=== PATIENT | male | born 1995 | race Caucasian/White ===

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

== ENCOUNTER 2017-11-13 16:31 | Emergency (ER) | payer BC ==
[2017-11-13 16:54] VITALS: BP 117/80
--- NOTE | 2017-11-13 16:57 | UC ---
Respiratory Complaint HPI - HPI Summary HPI Summary: 22 yo male presents with productive cough for the last 4 days. Sputum has been yellow/green in color and bad tasting. He had a fever 2 days ago of 101F and took ibuprofen with good relief. He has not had a fever since, but feels hot/ cold at times. He notices that he has increased coughing and mild SOB with activity. Denies sinus symptoms, sore throat, chest pain, palpitations, abdominal pain, n/v/d. - History of Current Complaint Chief Complaint: UCRespiratory Stated Complaint: COUGH,CONGESTION Time Seen by Provider: 11/13/17 16:57 Hx Obtained From: Patient Severity Currently: None Pain Intensity: 0 Character: Cough: Productive - Allergies/Home Medications Allergies/Adverse Reactions: Allergies Allergy/AdvReac Type Severity Reaction Status Date / Time No Known Allergies Allergy Verified 11/13/17 16:48 Home Medications: Home Medications Lisdexamfetamine Dimesylate [Vyvanse] 1 cap DAILY 11/13/17 [History Confirmed ] Venlafaxine EXT RELEASE CAP* [Effexor Xr CAP*] 1 cap DAILY 11/13/17 [History Confirmed 11/13/17] PMH/Surg Hx/FS Hx/Imm Hx - Additional Past Medical History Additional PMH: ADHD Anxiety GERD - Surgical History Surgical History: Yes Surgery Procedure, Year, and Place: wisdom teeth - Family History Known Family History: Positive: Cardiac Disease - Social History Occupation: Student Lives: Dormitory/Roommates Alcohol Use: None Substance Use Type: Marijuana Substance Use Comment - Amount & Last Used: YESTERDAY Smoking Status (MU): Never Smoked Tobacco Have You Smoked in the Last Year: No - Immunization History Most Recent Tetanus Shot: UTD Review of Systems Constitutional: Fever Skin: Negative Eyes: Negative ENT: Negative Respiratory: Shortness Of Breath, Cough Cardiovascular: Negative Gastrointestinal: Negative Neurovascular: Negative Neurological: Negative Psychological: Negative All Other Systems Reviewed And Are Negative: Yes Physical Exam - Summary Physical Exam Summary: GENERAL: NAD. WDWN. Mild pain distress. SKIN: No rashes, sores, lesions, or open wounds. HEENT: Head: AT/NC Eyes: Conjunctiva clear without inflammation or discharge. Ears: Hearing grossly normal. TMs intact, no bulging, erythema, or edema. Nose: Nasal mucosa pink and moist. NTTP maxillary and frontal sinus. Throat: Posterior oropharynx without exudates, erythema, or tonsillar enlargement. Uvula midline. NECK: Supple. Nontender. No lymphadenopathy. CHEST: Mild rales LLL with mild wheezing throughout. No accessory muscle use. Breathing comfortably and in no distress. CV: RRR. Without m/r/g. Pulses intact. Cap refill <2seconds NEURO: Alert. PSYCH: Age appropriate behavior. Triage Information Reviewed: Yes Vital Signs: Initial Vital Signs Temp 97.1 F 11/13/17 16:49 Pulse 88 11/13/17 16:49 Resp 16 11/13/17 16:49 BP 117/80 11/13/17 16:49 Pulse Ox 100 11/13/17 16:49 Vital Signs Reviewed: Yes UC Diagnostic Evaluation - Laboratory O2 Sat by Pulse Oximetry: 100 Respiratory Course/Dx - Course Course Of Treatment: Pt declined CXR today. He says that he has taken amoxicillin in the past, but has not tolerated it very well - therefore will rx azithromycin and have him f/u if his symptoms persist, at which point a CXR would likely be beneficial. - Differential Dx/Diagnosis Provider Diagnoses: Cough Discharge - Sign-Out/Discharge Documenting (check all that apply): Patient Departure All imaging exams completed and their final reports reviewed: No Studies - Discharge Plan Condition: Stable Disposition: HOME Prescriptions: Azithromycin TAB* [Zithromax TAB (Z-FAHAD) 250 mg #6 tabs] 2 tab PO .TODAY, THEN 1 DAILY #1 fahad Patient Education Materials: Acute Bronchitis (ED) Referrals: No Primary Care Phys,NOPCP [Primary Care Provider] - Additional Instructions: If you develop a fever, shortness of breath, chest pain, new or worsening symptoms - please call your PCP or go to the ED. - Billing Disposition and Condition Condition: STABLE Disposition: Home
== END 2017-11-13 17:07 | disposition home or self-care (01) ==
LOC: UCCORT 16:31
DX: R05 Cough (principal); R06.02 Shortness of breath; R09.81 Nasal congestion; F90.9 Attention-deficit hyperactivity disorder, unspecified type
CPT/HCPCS: 99212; G0463

== ENCOUNTER 2018-01-01 09:57 | Emergency (ER) | payer BC ==
[2018-01-01 10:22] VITALS: BP 120/83
--- NOTE | 2018-01-01 10:50 | UC ---
Respiratory Complaint HPI - HPI Summary HPI Summary: cough x 1 days cough is dry , no sputum, no wheezing , no sob + nasal congestion , sore throat x 1 wee no fever, no chills - History of Current Complaint Chief Complaint: UCRespiratory Stated Complaint: ST,COUGH,CONGESTION Time Seen by Provider: 01/01/18 10:27 Hx Obtained From: Patient Onset/Duration: Gradual Onset, Lasting Days - 1, Still Present Severity Initially: Moderate Severity Currently: Moderate Pain Intensity: 0 Character: Cough: Nonproductive Aggravating Factors: Exertion, Deep Breaths Alleviating Factors: Nothing Associated Signs And Symptoms: Positive: URI, Nasal Congestion. Negative: Dyspnea, Fever, Chills, Pleuritic Chest Pain, Wheezing, Hemoptysis, Dizziness, Calf Pain, Calf Swelling, Edema - Allergies/Home Medications Allergies/Adverse Reactions: Allergies Allergy/AdvReac Type Severity Reaction Status Date / Time No Known Allergies Allergy Verified 01/01/18 10:19 Home Medications: Home Medications guanFACINE TAB* [Tenex TAB*] 1 mg PO BEDTIME 01/01/18 [History Confirmed ] PMH/Surg Hx/FS Hx/Imm Hx Previously Healthy: Yes - Surgical History Surgical History: Yes Surgery Procedure, Year, and Place: wisdom teeth - Family History Known Family History: Positive: Cardiac Disease - Social History Alcohol Use: None Substance Use Type: Marijuana Substance Use Comment - Amount & Last Used: YESTERDAY Smoking Status (MU): Never Smoked Tobacco Have You Smoked in the Last Year: No - Immunization History Most Recent Tetanus Shot: UTD Review of Systems Constitutional: Negative Skin: Negative Eyes: Negative ENT: Sore Throat, Nasal Discharge Respiratory: Cough Cardiovascular: Negative Gastrointestinal: Negative Is Patient Immunocompromised?: No All Other Systems Reviewed And Are Negative: Yes Physical Exam Triage Information Reviewed: Yes Appearance: Well-Appearing, No Pain Distress, Well-Nourished Vital Signs: Initial Vital Signs Temp 98.6 F 01/01/18 10:17 Pulse 89 01/01/18 10:17 Resp 17 01/01/18 10:17 BP 120/83 01/01/18 10:17 Pulse Ox 98 01/01/18 10:17 Vital Signs Reviewed: Yes Eye Exam: Normal Eyes: Positive: Conjunctiva Clear ENT: Positive: Normal ENT inspection, Hearing grossly normal, Pharynx normal Neck: Positive: Supple, Nontender, No Lymphadenopathy Respiratory: Positive: Chest non-tender, Lungs clear, Normal breath sounds Cardiovascular: Positive: RRR, No Murmur, Pulses Normal Skin Exam: Normal UC Diagnostic Evaluation - Laboratory O2 Sat by Pulse Oximetry: 98 Respiratory Course/Dx - Differential Dx/Diagnosis Provider Diagnoses: viral bronchitis Discharge - Sign-Out/Discharge Documenting (check all that apply): Patient Departure All imaging exams completed and their final reports reviewed: No Studies - Discharge Plan Condition: Stable Disposition: HOME Patient Education Materials: Acute Bronchitis (ED) Referrals: No Primary Care Phys,NOPCP [Primary Care Provider] - If Needed Additional Instructions: viral illness no need for antibiotics follow up as needed - Billing Disposition and Condition Condition: STABLE Disposition: Home
== END 2018-01-01 10:57 | disposition home or self-care (01) ==
LOC: UCCORT 09:57
DX: J20.8 Acute bronchitis due to other specified organisms (principal); F12.90 Cannabis use, unspecified, uncomplicated
CPT/HCPCS: 99211; G0463

== ENCOUNTER 2018-03-28 07:20 | Emergency (ER) | payer BC ==
[2018-03-28 07:39] VITALS: BP 128/76
--- NOTE | 2018-03-28 08:03 | ED ---
Throat Pain/Nasal Congestion - HPI Summary HPI Summary: 22 yr old male with the complaint of runny nose, coughing, and sore throat the past week. He comes now because his glands have felt swollen to him. He mostly has a cough now. No fever. Ill exposures at college. No stridor. No drooling. No ear pain. - History of Current Complaint Chief Complaint: UCRespiratory Time Seen by Provider: 03/28/18 07:40 - Allergies/Home Medications Allergies/Adverse Reactions: Allergies Allergy/AdvReac Type Severity Reaction Status Date / Time No Known Allergies Allergy Verified 03/28/18 07:29 Home Medications: Home Medications Ibuprofen TAB* [Motrin TAB* 400 MG] 400 mg PO Q12H PRN 03/28/18 [History Confirmed 03/28/18] PMH/Surg Hx/FS Hx/Imm Hx - Surgical History Surgery Procedure, Year, and Place: wisdom teeth Infectious Disease History: No Infectious Disease History: Denies: Traveled Outside the [place] in Last 30 Days - Family History Known Family History: Positive: Cardiac Disease - Social History Alcohol Use: Occasionally Substance Use Type: Reports: Marijuana Substance Use Comment - Amount & Last Used: Quit 03/24/18 Smoking Status (MU): Current Some Day Smoker Have You Smoked in the Last Year: No Review of Systems Constitutional: Negative Positive: Sore Throat, Nasal Discharge Positive: Cough All Other Systems Reviewed And Are Negative: Yes Physical Exam Triage Information Reviewed: Yes Vital Signs On Initial Exam: Initial Vitals Temp Pulse Resp BP Pulse Ox 98.6 F 80 18 128/76 99 03/28/18 07:32 03/28/18 07:32 03/28/18 07:32 03/28/18 07:32 03/28/18 07:32 Vital Signs Reviewed: Yes Appearance: Positive: Well-Appearing, No Pain Distress Skin: Positive: Warm, Skin Color Reflects Adequate Perfusion Head/Face: Positive: Normal Head/Face Inspection Eyes: Positive: EOMI ENT: Positive: Pharyngeal erythema. Negative: Tonsillar swelling, Tonsillar exudate, Muffled voice Neck: Positive: Nontender, Enlarged Nodes @ - mild anterior superior Respiratory/Lung Sounds: Positive: Clear to Auscultation Cardiovascular: Positive: RRR. Negative: Murmur Musculoskeletal: Positive: Strength/ROM Intact Neurological: Positive: Sensory/Motor Intact, Alert, Oriented to Person Place, Time, CN Intact II-III Psychiatric: Positive: Normal Diagnostics - Vital Signs Vital Signs Temp Pulse Resp BP Pulse Ox 03/28/18 07:32 98.6 F 80 18 128/76 99 - Laboratory Lab Statement: Any lab studies that have been ordered have been reviewed, and results considered in the medical decision making process. EENT Course/Dx - Course Course Of Treatment: 22 yr old with neg rapid strep. Cannon spot sent. DC home - Diagnoses Provider Diagnoses: Upper respiratory infection Discharge - Sign-Out/Discharge Documenting (check all that apply): Patient Departure All imaging exams completed and their final reports reviewed: No Studies - Discharge Plan Condition: Good Disposition: HOME Patient Education Materials: Upper Respiratory Infection (ED) Referrals: No Primary Care Phys,NOPCP [Primary Care Provider] - [facility]] - Billing Disposition and Condition Condition: GOOD Disposition: Home
== END 2018-03-28 08:09 | disposition home or self-care (01) ==
LOC: UCCORT 07:20
DX: J06.9 Acute upper respiratory infection, unspecified (principal); F17.200 Nicotine dependence, unspecified, uncomplicated
CPT/HCPCS: 36415; 86308; 87651; 99211; G0463

== ENCOUNTER 2018-07-02 21:30 | Emergency (ER) | payer BC ==
[2018-07-02 21:45] VITALS: BP 122/76
--- NOTE | 2018-07-02 21:54 | ED ---
Throat Pain/Nasal Congestion - HPI Summary HPI Summary: 23 yr old male with the complaint of sore throat, runny nose, cough for about one week. Some fever and chills. The patient denies drooling. Symptoms are moderate. - History of Current Complaint Chief Complaint: UCRespiratory Time Seen by Provider: 07/02/18 21:44 - Allergies/Home Medications Allergies/Adverse Reactions: Allergies Allergy/AdvReac Type Severity Reaction Status Date / Time No Known Allergies Allergy Verified 07/02/18 21:41 PMH/Surg Hx/FS Hx/Imm Hx - Surgical History Surgery Procedure, Year, and Place: wisdom teeth Infectious Disease History: No Infectious Disease History: Denies: Traveled Outside the [place] in Last 30 Days - Family History Known Family History: Positive: Cardiac Disease - Social History Occupation: Student Lives: With Family Alcohol Use: Occasionally Substance Use Type: Reports: None Substance Use Comment - Amount & Last Used: Quit 03/24/18 Smoking Status (MU): Current Some Day Smoker Amount Used/How Often: "vape"- 4xweek Have You Smoked in the Last Year: No Review of Systems Positive: Fever, Chills Positive: Sore Throat, Nasal Discharge Positive: Cough All Other Systems Reviewed And Are Negative: Yes Physical Exam Triage Information Reviewed: Yes Vital Signs On Initial Exam: Initial Vitals Temp Pulse Resp BP Pulse Ox 97.9 F 81 16 122/76 98 07/02/18 21:42 07/02/18 21:42 07/02/18 21:42 07/02/18 21:42 07/02/18 21:42 Vital Signs Reviewed: Yes Appearance: Positive: Well-Appearing, No Pain Distress Skin: Positive: Warm, Skin Color Reflects Adequate Perfusion Head/Face: Positive: Normal Head/Face Inspection Eyes: Positive: EOMI ENT: Positive: Pharyngeal erythema, Nasal congestion, TMs normal Neck: Positive: Nontender Respiratory/Lung Sounds: Positive: Clear to Auscultation, Breath Sounds Present Cardiovascular: Positive: RRR. Negative: Murmur Abdomen Description: Negative: Distended Musculoskeletal: Positive: Strength/ROM Intact Neurological: Positive: Sensory/Motor Intact, Alert, Oriented to Person Place, Time, CN Intact II-III, Speech Normal Psychiatric: Positive: Normal Diagnostics - Vital Signs Vital Signs Temp Pulse Resp BP Pulse Ox 07/02/18 21:42 97.9 F 81 16 122/76 98 - Laboratory Lab Statement: Any lab studies that have been ordered have been reviewed, and results considered in the medical decision making process. EENT Course/Dx - Course Course Of Treatment: 23 yr old with URI symtpoms. DC home. - Diagnoses Provider Diagnoses: Upper respiratory infection Discharge - Sign-Out/Discharge Documenting (check all that apply): Patient Departure All imaging exams completed and their final reports reviewed: No Studies - Discharge Plan Condition: Good Disposition: HOME Patient Education Materials: Upper Respiratory Infection (ED) Referrals: No Primary Care Phys,NOPCP [Primary Care Provider] - [facility] [Outside] - Billing Disposition and Condition Condition: GOOD Disposition: Home
== END 2018-07-02 21:59 | disposition home or self-care (01) ==
LOC: UCCORT 21:30
DX: J06.9 Acute upper respiratory infection, unspecified (principal); R05 Cough; F17.210 Nicotine dependence, cigarettes, uncomplicated
CPT/HCPCS: 87651; 99211; G0463

== ENCOUNTER 2018-07-06 11:13 | Emergency (ER) | payer BC ==
[2018-07-06 12:13] VITALS: BP 125/79
--- NOTE | 2018-07-06 12:25 | UC ---
Throat Pain/Nasal Dima HPI - HPI Summary HPI Summary: 23-year-old male comes in with a chief complaint of more than 10 days of upper respiratory tract infection symptoms. Patient said rhinorrhea sinus pressure and postnasal drip cough chest congestion and green sputum. Initially had some fevers. He also had a fever last night and this morning he reports 101 this morning. [id number] medications to help some with the symptoms. - History of Current Complaint Chief Complaint: UCRespiratory Stated Complaint: COUGH,FEVER Time Seen by Provider: 07/06/18 12:13 Pain Intensity: 0 - Allergies/Home Medications Allergies/Adverse Reactions: Allergies Allergy/AdvReac Type Severity Reaction Status Date / Time No Known Allergies Allergy Verified 07/06/18 12:07 Home Medications: Home Medications Dm/PE/Acetaminophen/Doxylamine [Vicks Dayquil/Nyquil Cold] 2 cap PO Q6H PRN 01/14 [History Confirmed 07/06/18] Guaifenesin/Pseudoephedrne HCl [Mucinex D] 1 tab PO Q12HR PRN 07/06/18 [History Confirmed 07/06/18] Ibuprofen TAB* [Advil TAB*] 400 - 600 mg PO Q6H PRN 07/06/18 [History Confirmed 07/06/18] PMH/Surg Hx/FS Hx/Imm Hx Previously Healthy: Yes - Surgical History Surgical History: Yes Surgery Procedure, Year, and Place: wisdom teeth - Family History Known Family History: Positive: Cardiac Disease - Social History Alcohol Use: Occasionally Substance Use Type: Marijuana Substance Use Comment - Amount & Last Used: Every Other Day Smoking Status (MU): Never Smoked Tobacco Amount Used/How Often: "vape"- 4xweek Have You Smoked in the Last Year: No - Immunization History Most Recent Tetanus Shot: UTD Review of Systems All Other Systems Reviewed And Are Negative: Yes Constitutional: Positive: Fever, Chills Eyes: Positive: Negative ENT: Positive: Sore Throat, Nasal Discharge, Sinus Congestion, Sinus Pain/ Tenderness Respiratory: Positive: Cough, Other - see hpi Cardiovascular: Positive: Negative Gastrointestinal: Positive: Negative Motor: Positive: Negative Neurovascular: Positive: Negative Musculoskeletal: Positive: Negative Neurological: Positive: Negative Psychological: Positive: Negative Is Patient Immunocompromised?: No Physical Exam Triage Information Reviewed: Yes Appearance: No Pain Distress, Well-Nourished, Ill-Appearing - mild Vital Signs: Initial Vital Signs Temp 99.9 F 07/06/18 12:05 Pulse 96 07/06/18 12:05 Resp 18 07/06/18 12:05 BP 125/79 07/06/18 12:05 Pulse Ox 100 07/06/18 12:05 Vital Signs Reviewed: Yes Eye Exam: Normal Eyes: Positive: Conjunctiva Clear ENT: Positive: Pharyngeal erythema, Nasal congestion, Nasal drainage, TMs normal Neck: Positive: Supple Respiratory: Positive: Lungs clear, Normal breath sounds, No respiratory distress, No accessory muscle use Cardiovascular: Positive: RRR Musculoskeletal Exam: Normal Musculoskeletal: Positive: Strength Intact, ROM Intact Neurological Exam: Normal Neurological: Positive: Alert, Muscle Tone Normal Psychological Exam: Normal Psychological: Positive: Age Appropriate Behavior Skin Exam: Normal Throat Pain/Nasal Course/Dx - Course Course Of Treatment: 10+ days of Sx. Still with fevers. - Differential Dx/Diagnosis Provider Diagnosis: Bronchitis, Sinusitis Discharge - Sign-Out/Discharge Documenting (check all that apply): Patient Departure All imaging exams completed and their final reports reviewed: No Studies - Discharge Plan Condition: Stable Disposition: HOME Prescriptions: Azithromyxin FAHAD (NF) [Z-Fahad (Zithromax) 250 mg tabs #6] 2 tab PO .TODAY, THEN 1 DAILY #6 tab Patient Education Materials: Sinusitis (ED), Acute Bronchitis (ED) Referrals: [facility] [Outside] - Billing Disposition and Condition Condition: STABLE Disposition: Home
== END 2018-07-06 12:34 | disposition home or self-care (01) ==
LOC: UCCORT 11:13
DX: F17.290 Nicotine dependence, other tobacco product, uncomplicated (principal); J40 Bronchitis, not specified as acute or chronic; J32.9 Chronic sinusitis, unspecified
CPT/HCPCS: 99212; G0463